=== PATIENT | male | born 1945 | race Caucasian/White ===

== ENCOUNTER 2016-10-07 19:23 | Inpatient (IN) ==
[2016-10-07] MEDS ORDERED: SODIUM CHLORIDE 0.9% 500 ML IV STA (19:59)
[2016-10-07] MEDS ORDERED: AMPICILLIN/SULBACTAM 3,000 MG in SODIUM CHLORIDE 0.9% 100 ML IV STA (20:01)
[2016-10-07] MEDS ORDERED: PANTOPRAZOLE 40 MG VIAL IV STA (20:01)
[2016-10-07] MEDS ORDERED: METOCLOPRAMIDE 10 MG/2 ML VIAL IV STA (20:01)
[2016-10-07] MEDS ORDERED: ONDANSETRON 4 MG/2 ML VIAL IV STA (20:01)
--- NOTE | 2016-10-07 20:05 | Emergency Department Note ---
Arrival - Arrival Chief Complaint: Altered Mental Status Stated Complaint: LETHARGIC/FEVER/SLEEING/UNABLE TO EAT ED Nursing Triage Note: PT DENIES HAVING ANY COMPLAINTS, DX WITH UTI 09/29/16, CHANGED FROM BACTIM TO CEPHALEXIN, PER FAMILY PT CONFUSED AND DISORIENTED WITH N /V, PT ABLE TO ANSWER MOST QUESTIONS APPROPRIATELY ACCU CHECK IN TRIAGE 176 MG/ DL Mode of Arrival: Ambulatory Limitations: No Limitations Source: Patient Time Seen by Provider: 10/07/16 19:59 - History of Present Illness HPI Narrative: This 71-year-old white male presents per the family with increasing confusion, poor intake, nausea, and dry heaves for the past 5 days. They alleged chills and fever although the patient has no fever at this time. Patient has been treated off and on for the last 10 days with both Bactrim and cephalexin for urinary tract infection, but the patient has not complained of any dysuria urgency or frequency with this situation although the patient is very minimally oriented to person and place but not time. At no time is had complaints of chest pain, shortness of breath, visual changes, slurred speech, or focal deficit. He has underlying problem of Parkinson's which has been progressing. Currently he appears in no acute medical distress. Onset (ago): day(s) (Patient presents 5 days post onset of symptoms) Allergies/Adverse Reactions: Allergies Allergy/AdvReac Type Severity Reaction Status Date / Time No Known Allergies Allergy Verified 10/07/16 19:42 Home Medications: Home Medications Medication Instructions Recorded Confirmed Type Aspirin [Ecotrin] 81 mg PO QAM 05/17/14 10/07/16 History Metoprolol Succinate 100 mg PO QAM 05/17/14 10/07/16 History Rasagiline [Azilect] 1 mg PO QAM 05/17/14 10/07/16 History Vitamin B Complex [B Complex] 1 each PO QPM 05/17/14 10/07/16 History hydroCHLOROthiazide 12.5 mg PO QAM 05/17/14 10/07/16 History [Hydrochlorothiazide] metFORMIN [Glucophage] 500 mg PO BID W/MEALS 05/17/14 10/07/16 History Benztropine Tab [Cogentin Tab] 2 mg PO TID 10/07/16 10/07/16 History Carbidopa/Levodopa/Entacapone 1 each PO ACHS 10/07/16 10/07/16 History [Stalevo 125 Tablet] Docusate Sodium 250 mg PO QAM 10/07/16 10/07/16 History Magnesium Oxide [Magnesium] 400 mg PO QPM 10/07/16 10/07/16 History Metoprolol Succinate 50 mg PO BEDTIME 10/07/16 10/07/16 History cephALEXin [Cephalexin] 500 mg PO TID 10/07/16 10/07/16 History Review of System - Review of System 12 point system: reviewed and no additional remarkable complaints except as stated - Review of System Constitutional: Present: as per HPI Respiratory: Present: as per HPI Cardiovascular: Present: as per HPI Gastrointestinal: Present: as per HPI Genitourinary male: Present: as per HPI Neurological: Present: as per HPI Medical,Surgical,& Family Hx - Social History Smoking Status: Never smoker Exam Physical Examination: GENERAL: Frail elderly white male in no acute distress. HEENT: Normocephalic. No trauma. Moist mucous membranes. EOMI. PERRLA. ENT NML NECK: Supple. No adenopathy. CARDIAC: Regular. No murmurs. Heart rate 70 CHEST: Clear to auscultation. No respiratory distress. O2 sat 98% ABDOMEN: Soft. Distended with bilateral lower quadrant firmness and tenderness. Hypoactive bowel sounds.. EXTREMITIES: No trauma. Normal ROM. No pedal edema. SKIN: No diaphoresis. No rash. NEURO: Alert. Oriented to person and place. Motor, sensory, vibratory intact. No focal deficits. Vital Signs: Vital Signs Temperature 97 F L 10/07/16 19:32 Pulse Rate 70 10/07/16 19:32 Respiratory Rate 22 10/07/16 19:32 Blood Pressure 133/66 10/07/16 19:32 O2 Sat by Pulse Oximetry 98 10/07/16 19:32 Course - Reevaluation(s) Reevaluation #1: Discussed with family the need for hospitalization given the multiple problems existing. - Consultations Consultation #1: Discussed with hospitalist service who will admit for further evaluation treatment. Results - Labs CBC & BMP: 10/07/16 19:59 10/07/16 19:59 Labs: I reviewed the lab and noted the diffuse abnormalities including leukocytosis and hyponatremia and serious changes in renal function. - Impressions EKG: Sinus rhythm with normal DE interval and significant intraventricular conduction delay. Diffuse nonspecific ST changes. No acute injury pattern noted. - Diagnostic Findings Procedure: Abdominal x-ray: image reviewed by me, report reviewed by me (Severe fecal stasis), Chest x-ray: image reviewed by me, report reviewed by me (No acute disease), CT: image reviewed by me, report reviewed by me (Head: Microvascular ischemia with cerebral atrophy. No acute injury pattern noted) Disposition Clinical Impression: Altered mental status, Recurrent urinary tract infection, Renal failure, Hyponatremia Case discussed with: patient's family Disposition: Still a Patient Condition: Guarded Time of Disposition: 21:35
[2016-10-07 20:32] LABS: Basophils % 0.2 % (0.0-0.8); Eosinophils # 0.2 10*3/uL (0.0-0.87); Eosinophils % 0.8 % (0.00-10.9); Hematocrit 34.2 VOL% (42.0-52.0); Hemoglobin 12.4 GM/DL (14.0-18.0); Immature Granulocytes % 3.4 %; Immature Granulocytes Absolute 0.73 #; Lymphocytes # 2.5 10*3/uL (1.4-4.0); Lymphocytes % 11.7 % (21.2-54.2); Mean Corpuscular HGB Conc 36.3 GM/DL (32-36); Mean Corpuscular Hemoglobin 31 PG (27-34); Mean Corpuscular Volume 86.6 FL (87-102); Mean Platelet Volume 10.8 FL (9.6-12.0); Monocytes # 2.5 10*3/uL (0.11-0.8); Monocytes % 11.7 % (1.7-12.7); Neutrophils # 15.6 10*3/uL (1.4-7.4); Neutrophils % 72.2 % (38.7-73.9); Platelet Count 114 T/CUMM (130-400); Red Blood Count 3.95 MC/CUMM (3.8-5.5); Red Cell Distribution Width 13.4 % (9.3-17.3); White Blood Count 21.6 T/CUMM (4-12)
[2016-10-07] MEDS ORDERED: METOCLOPRAMIDE 10 MG/2 ML VIAL ONE (20:38)
[2016-10-07] MEDS ORDERED: ONDANSETRON 4 MG/2 ML VIAL ONE (20:38)
[2016-10-07] MEDS ORDERED: PANTOPRAZOLE 40 MG VIAL IV ONE (20:38)
[2016-10-07 20:48] LABS: Ammonia 29 UMOL/L (11-32)
[2016-10-07 20:50] LABS: INR 1.1; PT Patient Result 12.2 SECS
[2016-10-07 20:52] LABS: Alanine Aminotransferase < 6 U/L (16-61); Albumin 2.8 G/DL (3.4-5.0); Alkaline Phosphatase 92 U/L (45-117); Amylase 38 U/L (25-115); Aspartate Amino Transferase 12 U/L (0-37); Blood Urea Nitrogen 181 MG/DL (7-18); Calcium 8.2 MG/DL (8.5-10.1); Glucose 160 MG/DL (74-106); Osmolality,Calculated 313.5 MOS/KG (273-304); Potassium 4.6 MMOL/L (3.5-5.1); Sodium 125 MMOL/L (136-145); Total Protein 6.3 G/DL (6.4-8.3)
[2016-10-07 20:58] LABS: Lymphocytes 17 % (20-55); Segmented Neutrophils 78 % (50-85); Total Cells Counted 100
[2016-10-07 20:59] LABS: Burr Cells Few; Platelet Estimate Decreased; Poikilocytosis 1+; Tear Drop Cells Slight
--- NOTE | 2016-10-07 21:03 | CT Report ---
CT head/brain wo con Indication: Mental status changes. CT BRAIN WITHOUT CONTRAST DLP: 1135 mGy*cm. One or more of the following dose reduction techniques was used: Automated exposure control, adjustment of the mA and/or kV according the patient size, or use of iterative reconstruction techniques. Comparison: None. Date of admission: 10/07/2016. Technique: Axial noncontrast CT images of the brain were obtained. Findings: No acute hemorrhage, mass or mass effect. Generalized atrophy noted. Patchy periventricular white matter hypodensity is present. Cortical yuong-white junction and basal ganglia structures are well-defined. Volume loss in the posterior fossa noted as well. Mucosal thickening of the ethmoid air cells are present. Remainder paranasal sinuses are clear. Impression: Generalized atrophy and chronic small vessel ischemic change. Ethmoid sinus disease. PROCEDURE INTERPRETED AT [facility] DEPARTMENT OF RADIOLOGY Final Report Signed by: Olivier Schmitz M.D.
--- NOTE | 2016-10-07 21:04 | XRay Report ---
XR chest 1V portable Indication: Altered mental status. Chest one view: Comparison 05/16/2014. The heart size and mediastinal contour are normal. The lungs and pleural spaces are clear. Bones are unremarkable. Impression: Negative chest. PROCEDURE INTERPRETED AT [facility] DEPARTMENT OF RADIOLOGY Final Report Signed by: Olivier Schmitz M.D.
--- NOTE | 2016-10-07 21:06 | XRay Report ---
XR abdomen 2V Indication: Pain. Abdomen 3 views: No small bowel dilatation. Increased stool and gas projects over the colon, without dilatation. No evidence of free air. No abnormal calcifications or masses. There is an unusual appearance to the soft tissues around the left hip, somewhat bubbly. This may be artifact outside the patient but correlation with physical exam necessary to exclude cellulitis, including necrotizing fasciitis. Impression: Mild constipation without obstruction. Recommend examination of the soft tissues around the left hip. There is a bubbly appearance to the region which is either artifact or soft tissue emphysema. PROCEDURE INTERPRETED AT [facility] DEPARTMENT OF RADIOLOGY Final Report Signed by: Olivier Schmitz M.D.
[2016-10-07] MEDS ORDERED: AMPICILLIN/SULBACTAM 3,000 MG VIAL ONE (21:22)
[2016-10-07] MEDS ORDERED: SODIUM CHLORIDE 0.9% 100 ML IV ONE (21:23)
[2016-10-07] MEDS ORDERED: ONDANSETRON 4 MG/2 ML VIAL IV PRN (23:18)
[2016-10-07] MEDS ORDERED: ACETAMINOPHEN 325 MG TABLET PO PRN (23:18)
[2016-10-07] MEDS ORDERED: DOCUSATE SODIUM 100 MG CAPSULE PO PRN (23:18)
[2016-10-08 00:14] LABS: Apearance,Urine Slightly Hazy (Clear); Bacteria,Urine Many /HPF (Few); Bilirubin,Urine Negative (Negative); Blood, Urine Moderate mg/dL (Negative); Glucose,Urine (UA) Negative (Negative); Ketones,Urine Negative (Negative); Nitrite,Urine Positive (Negative); Protein,Urine Negative; RBC,Urine 10 /HPF (0-4); Urine Color Yellow (Yellow); Urine Specific Gravity 1.009 (1.001-1.035); Urine Urobilinogen < 2.0 EU/DL (0.2-1.0); WBC,Urine 40 /HPF (0-6)
[2016-10-08] MEDS: SODIUM CHLORIDE 0.9% 1,000 ML IV SCH ×3 (01:08→15:57)
--- NOTE | 2016-10-08 02:24 | Hospitalist History & Physical ---
Assessment and Plan - Time spent with patient Time spent with patient: Greater than 30 minutes (1) Acute renal failure Status: Acute Assessment and plan: Admit to hospitalist services. Consult nephrology. IV NS at 125 ml/hr. Insert varela catheter. Strict I/Os. CT abdomen pelvis w/o contrast. Renal US in AM. Repeat BMP in AM. Current Visit: Yes (2) Urinary tract infection Status: Acute Assessment and plan: Nephrology consulted. Zosyn 2.25 mg IV Q8 hours. IV NS 125 ml/hr. CT abdomen/pelvis w/o contrast. Renal US in AM. Current Visit: Yes (3) Parkinson disease Status: Chronic Assessment and plan: Continue home medications. Current Visit: Yes (4) HTN (hypertension) Status: Chronic Assessment and plan: Hold HCTZ. Continue metoprolol 100 mg QAM and 50 mg QHS. Continue to monitor. Current Visit: Yes (5) Diabetes mellitus Status: Chronic Assessment and plan: Clear liquid diet for now due to several days of anorexia, nausea, and vomiting. Accuchecks ACHS. Insulin per SS. Hold metformin for now. Repeat BMP in AM. Current Visit: Yes (6) DVT prophylaxis Status: Acute Assessment and plan: SCDs due to mild thrombocytopenia. Current Visit: Yes History of Present Illness Chief complaint: AMS History of present illness: Mr. Galvan is a 71 year old male with a history of Parkinson's Disease, NIDDM, and HTN [facility] of weakness, abnormal gait, abnormal speech, disorientation and forgetfulness x 2 weeks, as well as more recent onset of decreased appetite, nausea, vomiting, fever, chills, bloating and low back pain with symptoms worsening over the last few days. He reports being treated over the last week by Dr. Pierre in [place] for UTI. In the ED, Mr. Galvan was found to have a WBC count of 21.[address] of the head was negative for any acute changes. Significantly, his creatinine was noted to be 14.1. Currently, he is lethargic with mildly slurred speech, but responds appropriately to questions and is oriented x 3. Hospitalist services were consulted for further evaluation and management, and the patient will be admitted to a monitored bed. Home Medications Medication Instructions Recorded Confirmed Type Aspirin [Ecotrin] 81 mg PO QAM 05/17/14 10/07/16 History Metoprolol Succinate 100 mg PO QAM 05/17/14 10/07/16 History Rasagiline [Azilect] 1 mg PO QAM 05/17/14 10/07/16 History Vitamin B Complex [B Complex] 1 each PO QPM 05/17/14 10/07/16 History hydroCHLOROthiazide 12.5 mg PO QAM 05/17/14 10/07/16 History [Hydrochlorothiazide] metFORMIN [Glucophage] 500 mg PO BID W/MEALS 05/17/14 10/07/16 History Benztropine Tab [Cogentin Tab] 2 mg PO TID 10/07/16 10/07/16 History Carbidopa/Levodopa/Entacapone 1 each PO ACHS 10/07/16 10/07/16 History [Stalevo 125 Tablet] Docusate Sodium 250 mg PO QAM 10/07/16 10/07/16 History Magnesium Oxide [Magnesium] 400 mg PO QPM 10/07/16 10/07/16 History Metoprolol Succinate 50 mg PO BEDTIME 10/07/16 10/07/16 History cephALEXin [Cephalexin] 500 mg PO TID 10/07/16 10/07/16 History Allergies Allergy/AdvReac Type Severity Reaction Status Date / Time No Known Allergies Allergy Verified 10/07/16 19:42 Medical,Surgical,& Family Hx - Medical History Cardio: History of: Hypertension Neurology: History of: Parkinson's Disease HEENT: History of: HEENT Problems (nasal surgery(?) 2-3yrs ago) Endocrine: History of: Diabetes Mellitus (NIDDM) Respiratory: No history of: Asthma, COPD Renal: No history of: Renal Failure, Renal Problems Genitourinary: No history of: Problems Gastrointestinal: No history of: GI Problems Musculoskeletal: No history of: Amputation, Back/Neck Problems Hematology: No history of: Bleeding Problems, Clotting Problems - Surgical History Cardiac Surgeries: Patient Denies: Cardiac Catheterization Neurologic Surgeries: Patient denies: Neurologic Surgery Abdominal Surgeries: Patient denies: Abdominal Surgery Reproductive Surgeries: Patient denies;: Genitourinary Surgery - Family History Family History: Reports;: Family Cancer, Family Diabetes - Social History Smoking Status: Never smoker (uses smokeless tobacco) Have you smoked in the last 12 months: No Frequency of Alcohol Use: Occasionally Type of Drug Use: None Marital Status: Lives With:: Spouse Functional capacity: independent ambulation 12 point system: reviewed and no additional remarkable complaints except as stated - Constitutional Constitutional: Present: anorexia, chills, fever(s), weakness - EENT Eyes: Absent: blurry vision, diplopia, loss of vision Ears: Absent: decreased hearing, ear discharge, ear pain Nose, mouth and throat: Absent: dysphagia, epistaxis, nasal congestion, sore throat - Cardiovascular Cardiovascular: Absent: chest pain at rest, chest pain with activity, dyspnea, edema, orthopnea, palpitations - Respiratory Respiratory: Absent: cough, dyspnea - Gastrointestinal Gastrointestinal: Present: abdominal pain, bloating, nausea, vomiting. Absent: dysphagia, hematemesis, hematochezia, melena - Genitourinary Genitourinary: Present: urinary frequency. Absent: hematuria - Musculoskeletal Musculoskeletal: Present: back pain, muscle weakness. Absent: joint swelling, myalgias - Neurological Neurological: Present: abnormal gait, abnormal speech, behavioral changes, confusion, disequilibrium, tremor(s). Absent: numbness, paresthesias - Psychiatric Psychiatric: Absent: anxiety, depression - Endocrine Endocrine: Present: polyuria - Hematologic/Lymphatic Hematologic/Lymphatic: Absent: easy bleeding, easy bruising Exam - Constitutional Vitals: Period Temp Pulse Resp BP Sys/Logan Pulse Ox Last 24 Hr 97 F-97.6 F 70-80 20-22 133-149/61-66 93-98 Exam: Constitutional System: Lethargic. Answers questions appropriately. Oriented x 3. No distress. Mild RUE tremulousness noted. Head: Normocephalic, atraumatic. Ears, Nose and Throat System: No pain or tenderness. No epistaxis or discharge Eyes System: Pupils equal, round, and reactive. Extraocular muscles intact. Neck: Supple, without adenopathy, No jugular venous distention. No thyromegaly, neck mass, or prior surgery apparent. Respiratory System: Chest clear to auscultation. Cardiovascular System: Heart with regular rate and rhythm. No murmur. GI System: Abdomen distended and firm below umbilicus. Mild, diffuse tenderness noted with palpation. Normo active bowel sounds present. Musculoskeletal System: BUEs and RLE with no pedal edema. Left foot/ankle edema noted. Full distal pulses. Normal capillary refill. Neurological System: Mild tremor of RUE noted. Speech is somewhat slurred and difficult to understand. Psychiatric System: Conversation is rational. Results - Labs CBC & BMP: 10/07/16 19:59 10/07/16 19:59 Lab Results: I have reviewed the past 24 hour labs
[2016-10-08] MEDS ORDERED: GLUCAGON 1 MG VIAL IM PRN (02:46)
[2016-10-08] MEDS ORDERED: DEXTROSE 50% 25 GM/50 ML SYRINGE IV PRN (02:46)
--- NOTE | 2016-10-08 02:51 | EKG Report ---
Stationary ECG Study [facility] ER Test Date: 10/07/2016 8:44:53 PM Pat Name: HERI COTA Department: Room: 520 Gender: M Solutions Architect Consultant: : 1945 Requested by: Howard Flores Order Number: [id number] Lora MD: SAM FLOWERS Intervals [place] Rate: 69 P: 34 CT: 192 QRS: 97 QRSD: 170 T: 45 QT: 470 QTc: 489 Interpretive Statements SINUS RHYTHM LEFT BUNDLE BRANCH BLOCK Electronically Signed On 10-08-16 07:13:21 CDT by SAM FLOWERS [email or web address]
[2016-10-08 05:53] LABS: Basophils % 0.2 % (0.0-0.8); Eosinophils # 0.1 10*3/uL (0.0-0.87); Eosinophils % 0.9 % (0.00-10.9); Hematocrit 34.7 VOL% (42.0-52.0); Hemoglobin 12.3 GM/DL (14.0-18.0); Immature Granulocytes Absolute 0.43 #; Lymphocytes # 1.5 10*3/uL (1.4-4.0); Lymphocytes % 10.4 % (21.2-54.2); Mean Corpuscular HGB Conc 35.4 GM/DL (32-36); Mean Corpuscular Hemoglobin 31 PG (27-34); Mean Corpuscular Volume 87.2 FL (87-102); Mean Platelet Volume 10.5 FL (9.6-12.0); Monocytes # 1.5 10*3/uL (0.11-0.8); Monocytes % 10.4 % (1.7-12.7); Neutrophils # 10.9 10*3/uL (1.4-7.4); Neutrophils % 75.1 % (38.7-73.9); Platelet Count 130 T/CUMM (130-400); Red Blood Count 3.98 MC/CUMM (3.8-5.5); Red Cell Distribution Width 13.3 % (9.3-17.3); White Blood Count 14.5 T/CUMM (4-12)
[2016-10-08 06:25] LABS: Calcium 8.8 MG/DL (8.5-10.1); Potassium 4.4 MMOL/L (3.5-5.1)
[2016-10-08 06:31] LABS: Band Neutrophils 1 % (0-10); Burr Cells Slight; Giant Platelets Few; Hypochromasia 1+; Lymphocytes 8 % (20-55); Platelet Estimate Normal; Segmented Neutrophils 84 % (50-85); Total Cells Counted 100
--- NOTE | 2016-10-08 06:36 | CT Report ---
CT of the abdomen and pelvis without intravenous or oral contrast. Indication: Generalized abdominal pain. Abdominal bloating. Abnormal lab values. Axial images were obtained with sagittal and coronal reconstructions. There is significant limitation secondary to patient motion. The heart is enlarged. There is coronary artery calcification. There is scarring and atelectasis present within the lung bases. No pericardial or pleural effusion. The liver size and density is normal. The gallbladder is somewhat distended. The spleen is normal in size. There is no pancreatic enlargement. There is no adrenal enlargement. The kidneys are normal in size, location, and contour, without nephrolithiasis. The ureters are mildly and uniformly dilated to the level of the urinary bladder. There is a Franks catheter in place, but still considerable urine within the urinary bladder. The prostate gland is enlarged, having dimensions of 6 cm. The course of the Franks catheter through the prostatic urethra is tortuous. There is generalized subcutaneous edema, mild in severity. There is no free air seen within the peritoneal cavity. There is mild free fluid along both paracolic gutters. The abdominal aorta is of normal caliber, with scattered plaque. The loops of small intestine are not significantly dilated. There is moderate fecal material throughout the length of the colon. The appendix is not discretely seen. There is mild circumferential wall thickening seen involving the rectum. Degenerative changes are noted within the spinal column. Impression: 1. Study is limited by motion artifact. 2. Mild distention of the gallbladder, nonspecific. 3. Mild hydronephrosis bilaterally, with a distended urinary bladder despite the presence of a Franks catheter. Enlarged prostate gland. These findings could be related to bladder outlet obstruction. No urinary tract calculi are noted. Infection of the kidneys cannot be excluded. 4. Minimal free fluid within the peritoneal cavity. 5. Generalized anasarca. 6. Mild circumferential wall thickening of the rectum, nonspecific. Infection and neoplasm should be considered. Rectal exam plus or minus colonoscopy recommended. The CT exam was performed using one or more of the following dose reduction techniques: Automated exposure control, adjustment of the mA and/or kV according to patient size, or use of iterative reconstruction technique. PROCEDURE INTERPRETED AT [facility] DEPARTMENT OF RADIOLOGY Final Report Signed by: Dr. Alona Wells
[2016-10-08] MEDS: PIPERACILLIN/TAZOBACTAM 3,375 MG in SODIUM CHLORIDE 0.9% 100 ML IV SCH ×2 (06:43→16:24)
--- NOTE | 2016-10-08 08:28 | Ultrasound Report ---
Bilateral renal ultrasound. Indication: Markedly elevated creatinine. No prior studies. The kidneys are normal in size. The right measures 9.7 x 5.0 x 5.1 cm in the left measures 10.4 x 5.8 x 5.6 cm. Cortical thickness is within the range of normal. Parenchymal echogenicity is normal. Arterial flow is documented bilaterally. There is mild bilateral hydronephrosis. Impression: Mild bilateral hydronephrosis. The Ultrasound images were captured and stored. PROCEDURE INTERPRETED AT [facility] DEPARTMENT OF RADIOLOGY Final Report Signed by: Dr. Alona Wells
[2016-10-08] MEDS: INSULIN LISPRO 100 UNIT/ML SUBCUT SCH ×4 (08:48→20:58)
[2016-10-08] MEDS: METOPROLOL SUCCINATE XL 100 MG TABLET PO SCH (08:49)
[2016-10-08] MEDS: ASPIRIN EC 81 MG TABLET PO SCH (08:49)
[2016-10-08] MEDS: RASAGILINE 0.5 MG TABLET PO SCH (08:50)
[2016-10-08] MEDS ORDERED: BENZTROPINE 1 MG TABLET PO SCH (09:00)
[2016-10-08] MEDS ORDERED: ENOXAPARIN 30 MG/0.3 ML SYRINGE SUBCUT SCH (09:00)
--- NOTE | 2016-10-08 10:43 | Urology Consultation ---
Assessment and Plan (1) Acute urinary retention Status: Acute Assessment and plan: Greater than 2 L in his bladder at time of Franks placement. This is likely worsened by Parkinson's disease, medications, and possible constipation. Maintain Franks catheter to gravity. Current Visit: Yes (2) Enlarged prostate with urinary retention Status: Acute Assessment and plan: 40 g prostate with significant urinary retention. After renal function improved, would start Flomax 0.4 mg nightly and finasteride 5 mg daily. Current Visit: Yes (3) Parkinson disease Status: Chronic Assessment and plan: Likely contributing to urinary retention. His bladder may be poorly function with neuropathy. Or, this could be related just with medications. Current Visit: Yes (4) Hydronephrosis due to obstruction of bladder Status: Acute Assessment and plan: Maintain Franks catheter to gravity. Creatinine is falling quickly with postobstructive diuresis. Hydronephrosis should resolve with gravity drainage. Current Visit: Yes (5) Acute renal failure Status: Acute Assessment and plan: Likely due to urinary retention. Creatinine falling from 14 down to 9 overnight. We will continue to monitor urine output, and need hydration due to risk of electrolyte abnormalities. This is likely related with postobstructive diuresis. We will continue to follow at this time. No acute surgical intervention. Maintain Franks catheter to gravity. Start Flomax 0.4 mg nightly and finasteride 5 mg daily when electrolytes normalized. Thanks for the opportunity to participate in the care of this patient. Current Visit: Yes History of Present Illness - Data of Consult Patient: new to practice Consult date: 10/08/16 - Consult Narrative History of present illness: Mr. Galvan is a 71 year old male who was admitted with altered mental status, severe hyponatremia, and urinary retention. His serum creatinine was 14. He had been treated for reported urinary tract infections with cephalexin and Bactrim in the recent days. He had progressive weakening, confusion, and generalized fatigue. Upon evaluation he had a CT abdomen and pelvis without contrast that demonstrated severe bilateral hydronephrosis with hydroureter down to the bladder. His bladder was massively distended. A Franks catheter was placed with immediate drainage of over 2 L of clear urine. He has had over 6 L of urine output since Franks placement last evening. Urology was consulted for urinary retention. His history is obtained mostly from the chart. He is somewhat confused and slow to speak. History is somewhat confusing to obtain from him today. CC: Donna Peguero MD Acute urinary retention with bilateral hydronephrosis - Home Medications and Allergies Home Medications: Home Medications Medication Instructions Recorded Confirmed Type Aspirin [Ecotrin] 81 mg PO QAM 05/17/14 10/07/16 History Metoprolol Succinate 100 mg PO QAM 05/17/14 10/07/16 History Rasagiline [Azilect] 1 mg PO QAM 05/17/14 10/07/16 History Vitamin B Complex [B Complex] 1 each PO QPM 05/17/14 10/07/16 History hydroCHLOROthiazide 12.5 mg PO QAM 05/17/14 10/07/16 History [Hydrochlorothiazide] metFORMIN [Glucophage] 500 mg PO BID W/MEALS 05/17/14 10/07/16 History Benztropine Tab [Cogentin Tab] 2 mg PO TID 10/07/16 10/07/16 History Carbidopa/Levodopa/Entacapone 1 each PO ACHS 10/07/16 10/07/16 History [Stalevo 125 Tablet] Docusate Sodium 250 mg PO QAM 10/07/16 10/07/16 History Magnesium Oxide [Magnesium] 400 mg PO QPM 10/07/16 10/07/16 History Metoprolol Succinate 50 mg PO BEDTIME 10/07/16 10/07/16 History cephALEXin [Cephalexin] 500 mg PO TID 10/07/16 10/07/16 History Allergies/Adverse Reactions: Allergies Allergy/AdvReac Type Severity Reaction Status Date / Time No Known Allergies Allergy Verified 10/07/16 19:42 ROS unobtainable: due to delirium (Asking obtained, but unsure reliability) - Constitutional Constitutional: Present: anorexia, fatigue, frequent falls, lethargy - Respiratory Respiratory: Absent: cough, dyspnea - Gastrointestinal Gastrointestinal: Present: abdominal pain, bloating - Genitourinary Genitourinary: Present: difficulty urinating. Absent: hematuria - Neurological Neurological: Present: abnormal speech, frequent falls, memory loss, other ( History of Parkinson's) - Endocrine Endocrine: Present: fatigue. Absent: cold intolerance - Hematologic/Lymphatic Hematologic/Lymphatic: Absent: easy bleeding, easy bruising Exam - Constitutional Vitals: Period Temp Pulse Resp BP Sys/Logan Pulse Ox Last 24 Hr 97 F-98.4 F 70-93 18-22 105-149/49-70 92-99 General appearance: other (Drowsy, difficult to awaken) - Head Head exam: Present: normocephalic, atraumatic - Eye Eye exam: Absent: scleral icterus - ENT ENT exam: Present: normal oropharynx - Neck Neck exam: Present: normal inspection - Respiratory Respiratory exam: Present: clear to auscultation bilaterally. Absent: accessory muscle use, stridor - Cardiovascular Cardiovascular exam: Present: regular rate and rhythm - GI/Abdominal GI/Abdominal exam: Present: normal bowel sounds, soft. Absent: rebound - Genitourinary Genitourinary: penis with no lesions or discharge (Circumcised; 16 Serbian Franks with clear urine-secured to right thigh), other (40 g prostate, symmetric, a nodular, soft) - Extremities Exam Extremities exam: Absent: edema - Back Exam Back exam: Absent: CVA tenderness (L), CVA tenderness (R) - Neurological Exam Neurological exam: Present: altered - Psychiatric Psychiatric exam: Present: flat affect - Skin Skin exam: Present: warm, dry Results - Labs CBC & BMP: 10/08/16 05:15 10/08/16 05:15 Lab Results: I have reviewed the past 24 hour labs - Diagnostic Findings Procedure: CT Abdomen and Pelvis: image reviewed by me, report reviewed by me ( I personally reviewed his CT abdomen and pelvis. No evidence of urolithiasis. Marked bilateral hydronephrosis with hydroureter down to the bladder. Markedly distended bladder to approximately the umbilicus. Evidence of intravesical median lobe.) Medical,Surgical,& Family Hx - Medical History Cardio: History of: Hypertension Neurology: History of: Parkinson's Disease HEENT: History of: HEENT Problems (nasal surgery(?) 2-3yrs ago) Endocrine: History of: Diabetes Mellitus (NIDDM) Respiratory: No history of: Asthma, COPD Renal: No history of: Renal Failure, Renal Problems Genitourinary: History of: Problems (Inability to void for several days. Acute urinary retention) Gastrointestinal: No history of: GI Problems Musculoskeletal: No history of: Amputation, Back/Neck Problems Hematology: No history of: Bleeding Problems, Clotting Problems - Surgical History Cardiac Surgeries: Patient Denies: Cardiac Catheterization Neurologic Surgeries: Patient denies: Neurologic Surgery Abdominal Surgeries: Patient denies: Abdominal Surgery Reproductive Surgeries: Patient denies;: Genitourinary Surgery - Family History Family History: Reports;: Family Cancer, Family Diabetes - Social History Smoking Status: Never smoker (uses smokeless tobacco) Frequency of Alcohol Use: Occasionally Type of Drug Use: None Lives With:: Patient reports he lives at home with his . Unsure how reliable his history is
--- NOTE | 2016-10-08 14:58 | Neurology Consult Note ---
History of Present Illness History of present illness: Mr. Galvan is a 71 year old right-handed white gentleman with a history of Parkinson's Disease, NIDDM, and HTN who presented to the ED last night with complaints of weakness, abnormal gait, abnormal speech, disorientation and forgetfulness x 2 weeks, as well as more recent onset of decreased appetite, nausea, vomiting, fever, chills, bloating and low back pain with symptoms worsening over the last few days. He reports being treated over the last week by Dr. Pierre in [place] for UTI. In the ED, Mr. Galvan was found to have a WBC count of 21.[address] of the head was negative for any acute changes. Significantly, his creatinine was noted to be 14.1 and is down to 9.8 now. Currently, he is lethargic but responds appropriately to questions . Home Medications Medication Instructions Recorded Confirmed Type Aspirin [Ecotrin] 81 mg PO QAM 05/17/14 10/07/16 History Metoprolol Succinate 100 mg PO QAM 05/17/14 10/07/16 History Rasagiline [Azilect] 1 mg PO QAM 05/17/14 10/07/16 History Vitamin B Complex [B Complex] 1 each PO QPM 05/17/14 10/07/16 History hydroCHLOROthiazide 12.5 mg PO QAM 05/17/14 10/07/16 History [Hydrochlorothiazide] metFORMIN [Glucophage] 500 mg PO BID W/MEALS 05/17/14 10/07/16 History Benztropine Tab [Cogentin Tab] 2 mg PO TID 10/07/16 10/07/16 History Carbidopa/Levodopa/Entacapone 1 each PO ACHS 10/07/16 10/07/16 History [Stalevo 125 Tablet] Docusate Sodium 250 mg PO QAM 10/07/16 10/07/16 History Magnesium Oxide [Magnesium] 400 mg PO QPM 10/07/16 10/07/16 History Metoprolol Succinate 50 mg PO BEDTIME 10/07/16 10/07/16 History cephALEXin [Cephalexin] 500 mg PO TID 10/07/16 10/07/16 History Allergies Allergy/AdvReac Type Severity Reaction Status Date / Time No Known Allergies Allergy Verified 10/07/16 19:42 ROS unobtainable: due to mental status Medical,Surgical,& Family Hx - Medical History Cardio: History of: Hypertension Neurology: History of: Parkinson's Disease HEENT: History of: HEENT Problems (nasal surgery(?) 2-3yrs ago) Endocrine: History of: Diabetes Mellitus (NIDDM) Respiratory: No history of: Asthma, COPD Renal: No history of: Renal Failure, Renal Problems Genitourinary: History of: Problems (Inability to void for several days. Acute urinary retention) Gastrointestinal: No history of: GI Problems Musculoskeletal: No history of: Amputation, Back/Neck Problems Hematology: No history of: Bleeding Problems, Clotting Problems - Surgical History Cardiac Surgeries: Patient Denies: Cardiac Catheterization Neurologic Surgeries: Patient denies: Neurologic Surgery Abdominal Surgeries: Patient denies: Abdominal Surgery Reproductive Surgeries: Patient denies;: Genitourinary Surgery - Family History Family History: Reports;: Family Cancer, Family Diabetes - Social History Smoking Status: Never smoker (uses smokeless tobacco) Frequency of Alcohol Use: Occasionally Type of Drug Use: None Exam - Constitutional Vitals: Period Temp Pulse Resp BP Sys/Logan Pulse Ox Last 24 Hr 97 F-98.4 F 70-93 18-22 105-149/49-70 92-99 Exam: GENERAL: Patient is in no acute distress. NECK: Neck is supple. There is no JVD. No carotid bruits present. No thyroid masses. CVS: First and second heart sounds are normal. There is no S3 present. Regular rate and rhythm. RESPIRATORY: Lungs are clear to auscultation without any rales or rhonchi. ABDOMEN: Soft and non-tender. Bowel sounds are present. There is no hepatosplenomegaly. EXT: There is no palpable edema. Peripheral pulses are present. Skin: No rashes Central Nervous system: General: Alert, awake and Oriented x 3 Speech: Fluent Comprehension: Intact and normal Facial expressions: Normal Cranial Nerves: CN1/Olfactory: Normal CN II/ Optic: Normal, Visual Pedraza unreliable CN III, and : CYRUS & EOMI CN V: Normal & intact CN VII: face is symmetric CNVIII: Normal CN XI/X/XI/XII: Grossly intact and Normal Motor: Bilateral mild cogwheel rigidity and bradykinesia Manual strength testing cannot be done at this Sensory: Grossly intact for all the modalities of PP, LT and temp sense Reflexes: 1+ and symmetrical Cerebellar function: No chest Toes: Equivocal Gait: Not tested Results - Labs CBC & BMP: 10/08/16 05:15 10/08/16 05:15 Assessment and Plan (1) Toxic metabolic encephalopathy Status: Acute Assessment and plan: Likely secondary to infection and renal failure/acute kidney injury Nephrology consultation is pending Current Visit: Yes (2) Parkinson disease Status: Chronic Assessment and plan: Continue current Parkinson's medication at the same dose. However will discontinue Cogentin at this time Thank you for the consult Current Visit: Yes
--- NOTE | 2016-10-08 17:47 | Nephrology Consult Note ---
History of Present Illness Chief complaint: Acute renal failure History of present illness: Mr. Galvan is a 71 year old male with history of diabetes, Parkinson's disease presented to a local emergency room with a 2 week history of weakness and change in mentation. The patient was found to have an elevated serum creatinine of 14 and evidence of hydronephrosis. He now has a Franks placed now and has been voiding without event today. Serum creatinine is now down to 9.1. Nephrology is been consulted for renal issues. Renal ultrasound shows normal kidney size and the cortex showed normal thickness. No fevers or chills. There is been no exposure to contrast or intake medications. Home Medications Medication Instructions Recorded Confirmed Type Aspirin [Ecotrin] 81 mg PO QAM 05/17/14 10/07/16 History Metoprolol Succinate 100 mg PO QAM 05/17/14 10/07/16 History Rasagiline [Azilect] 1 mg PO QAM 05/17/14 10/07/16 History Vitamin B Complex [B Complex] 1 each PO QPM 05/17/14 10/07/16 History hydroCHLOROthiazide 12.5 mg PO QAM 05/17/14 10/07/16 History [Hydrochlorothiazide] metFORMIN [Glucophage] 500 mg PO BID W/MEALS 05/17/14 10/07/16 History Benztropine Tab [Cogentin Tab] 2 mg PO TID 10/07/16 10/07/16 History Carbidopa/Levodopa/Entacapone 1 each PO ACHS 10/07/16 10/07/16 History [Stalevo 125 Tablet] Docusate Sodium 250 mg PO QAM 10/07/16 10/07/16 History Magnesium Oxide [Magnesium] 400 mg PO QPM 10/07/16 10/07/16 History Metoprolol Succinate 50 mg PO BEDTIME 10/07/16 10/07/16 History cephALEXin [Cephalexin] 500 mg PO TID 10/07/16 10/07/16 History Allergies Allergy/AdvReac Type Severity Reaction Status Date / Time No Known Allergies Allergy Verified 10/07/16 19:42 Medical,Surgical,& Family Hx - Medical History Cardio: History of: Hypertension Neurology: History of: Parkinson's Disease HEENT: History of: HEENT Problems (nasal surgery(?) 2-3yrs ago) Endocrine: History of: Diabetes Mellitus (NIDDM) Respiratory: No history of: Asthma, COPD Renal: No history of: Renal Failure, Renal Problems Genitourinary: History of: Problems (Inability to void for several days. Acute urinary retention) Gastrointestinal: No history of: GI Problems Musculoskeletal: No history of: Amputation, Back/Neck Problems Hematology: No history of: Bleeding Problems, Clotting Problems - Surgical History Cardiac Surgeries: Patient Denies: Cardiac Catheterization Neurologic Surgeries: Patient denies: Neurologic Surgery Abdominal Surgeries: Patient denies: Abdominal Surgery Reproductive Surgeries: Patient denies;: Genitourinary Surgery - Family History Family History: Reports;: Family Cancer, Family Diabetes - Social History Smoking Status: Never smoker (uses smokeless tobacco) Frequency of Alcohol Use: Occasionally Type of Drug Use: None Review of Systems ROS unobtainable: due to mental status Exam - Vital Signs Vital signs: Period Temp Pulse Resp BP Sys/Logan Pulse Ox Last 24 Hr 97 F-98.4 F 70-93 18-22 105-149/49-70 92-99 - General Appearance General appearance: well-developed, well-nourished EENT: ATNC Neck: supple Respiratory: clear Cardiology: regular rate, regular rhythm Gastrointestinal: normoactive bowel sounds, no tenderness Neurologic: no asterixis Musculoskeletal: no clubbing Results - Labs CBC & BMP: 10/08/16 05:15 10/08/16 05:15 Assessment and Plan (1) Acute renal failure Status: Acute Assessment and plan: More likely due to obstruction. Now with a Franks in place and is voiding. Avoid nephrotoxic agents. BMP in a.m. Current Visit: Yes (2) Parkinson disease Status: Chronic Current Visit: Yes (3) HTN (hypertension) Status: Chronic Current Visit: Yes Qualifiers: Hypertension type: essential hypertension Qualified Code(s): I10 - Essential (primary) hypertension (4) Urinary tract infection Status: Acute Current Visit: Yes (5) Retention of urine, unspecified Status: Acute Assessment and plan: Now Franks catheter in place. Current Visit: Yes
[2016-10-08] MEDS: MAGNESIUM OXIDE 400 MG TABLET PO SCH (20:57)
[2016-10-08] MEDS: METOPROLOL SUCCINATE XL 50 MG TABLET PO SCH (20:57)
[2016-10-08] MEDS: MULTIVITAMIN (BEROCCA) TABLET PO SCH (20:58)
[2016-10-09] MEDS: SODIUM CHLORIDE 0.9% 1,000 ML IV SCH ×3 (00:09→17:28)
[2016-10-09] MEDS: PIPERACILLIN/TAZOBACTAM 3,375 MG in SODIUM CHLORIDE 0.9% 100 ML IV SCH ×2 (03:33→15:17)
[2016-10-09 07:52] LABS: Calcium 8.2 MG/DL (8.5-10.1); Osmolality,Calculated 305.3 MOS/KG (273-304); Potassium 3.3 MMOL/L (3.5-5.1)
--- NOTE | 2016-10-09 07:55 | Urology Progress Note ---
Assessment and Plan (1) Acute urinary retention Status: Acute Assessment and plan: Greater than 2 L in his bladder at time of Franks placement. Needs to obtain urine culture. This is likely worsened by Parkinson's disease, medications, and possible constipation. Maintain Franks catheter to gravity. Current Visit: Yes (2) Enlarged prostate with urinary retention Status: Acute Assessment and plan: 40 g prostate with significant urinary retention. After renal function improved, would start Flomax 0.4 mg nightly and finasteride 5 mg daily. Discussed with the patient that he may need intermittent catheterization in the future. Current Visit: Yes (3) Parkinson disease Status: Chronic Assessment and plan: Likely contributing to urinary retention. His bladder may be poorly function with neuropathy. Or, this could be related just with medications. Current Visit: Yes (4) Hydronephrosis due to obstruction of bladder Status: Acute Assessment and plan: Maintain Franks catheter to gravity. Creatinine is falling quickly with postobstructive diuresis. Nephrology following. Hydronephrosis should resolve with gravity drainage. Current Visit: Yes (5) Acute renal failure Status: Acute Assessment and plan: Likely due to urinary retention. Creatinine falling from 14 down to 9. Nephrology following We will continue to monitor urine output, and need hydration due to risk of electrolyte abnormalities. This is likely related with postobstructive diuresis. We will continue to follow at this time. No acute surgical intervention. Maintain Franks catheter to gravity. Start Flomax 0.4 mg nightly and finasteride 5 mg daily when electrolytes normalized. Thanks for the opportunity to participate in the care of this patient. Current Visit: Yes Urology - PN: Subj Interval history: Sensorium clearing. Patient reports it had a long-standing history of voiding complaints. He noted over the last 2 weeks and had difficulty voiding. He had episodes of urinary incontinence. He reports that he was not have any urge. This had been gradual in onset, but acutely worsening. Denies fevers or chills. He become very confused and disoriented prior to admission. Is feeling better this morning. Chronic constipation and Parkinson's disease. He states this is been a long- standing problem, and is treated with [id number] laxatives. Exam - Constitutional Vitals: Period Temp Pulse Resp BP Sys/Logan Pulse Ox Last 24 Hr 97.4 F-98.1 F 69-93 17-20 105-141/47-80 94-98 General appearance: no acute distress - Head Head exam: Present: normocephalic, atraumatic - Eye Eye exam: Absent: scleral icterus - ENT ENT exam: Present: normal oropharynx - Neck Neck exam: Present: normal inspection - Respiratory Respiratory exam: Present: clear to auscultation bilaterally. Absent: stridor - Cardiovascular Cardiovascular exam: Present: regular rate and rhythm. Absent: JVD - GI/Abdominal GI/Abdominal exam: Present: normal bowel sounds, soft. Absent: distended, rebound - Genitourinary Genitourinary: scrotum without lesions, cysts, edema or rash, penis with no lesions or discharge, other (Franks catheter in place draining clear urine) - Extremities Exam Extremities exam: Present: normal capillary refill - Back Exam Back exam: Absent: CVA tenderness (L), CVA tenderness (R) - Neurological Exam Neurological exam: Present: alert, oriented X3 - Psychiatric Psychiatric exam: Present: normal affect, normal mood - Skin Skin exam: Present: warm, dry Results - Labs CBC & BMP: 10/08/16 05:15 10/08/16 05:15 Lab Results: I have reviewed the past 24 hour labs
[2016-10-09] MEDS: METOPROLOL SUCCINATE XL 100 MG TABLET PO SCH (08:33)
[2016-10-09] MEDS: ASPIRIN EC 81 MG TABLET PO SCH (08:33)
[2016-10-09] MEDS: RASAGILINE 0.5 MG TABLET PO SCH (08:33)
[2016-10-09] MEDS: INSULIN LISPRO 100 UNIT/ML SUBCUT SCH ×4 (08:35→20:27)
[2016-10-09 09:55] LABS: Basophils % 0.3 % (0.0-0.8); Eosinophils # 0.4 10*3/uL (0.0-0.87); Eosinophils % 3.5 % (0.00-10.9); Hematocrit 30.5 VOL% (42.0-52.0); Hemoglobin 10.7 GM/DL (14.0-18.0); Immature Granulocytes % 3.1 %; Immature Granulocytes Absolute 0.35 #; Lymphocytes # 1.7 10*3/uL (1.4-4.0); Lymphocytes % 15.5 % (21.2-54.2); Mean Corpuscular HGB Conc 35.1 GM/DL (32-36); Mean Corpuscular Hemoglobin 31 PG (27-34); Mean Corpuscular Volume 89.2 FL (87-102); Mean Platelet Volume 10.2 FL (9.6-12.0); Monocytes # 1.3 10*3/uL (0.11-0.8); Monocytes % 11.7 % (1.7-12.7); Neutrophils # 7.4 10*3/uL (1.4-7.4); Neutrophils % 65.9 % (38.7-73.9); Platelet Count 136 T/CUMM (130-400); Red Blood Count 3.42 MC/CUMM (3.8-5.5); Red Cell Distribution Width 13.4 % (9.3-17.3); White Blood Count 11.2 T/CUMM (4-12)
[2016-10-09 10:18] LABS: Albumin 2.4 G/DL (3.4-5.0); Bilirubin,Total 0.8 MG/DL (0.2-1.0); Calcium 8.1 MG/DL (8.5-10.1); Osmolality,Calculated 305.3 MOS/KG (273-304); Potassium 3.3 MMOL/L (3.5-5.1); Total Protein 5.2 G/DL (6.4-8.3)
[2016-10-09] MEDS: POTASSIUM CHLORIDE 20 MEQ TABLET PO SCH ×2 (11:00→20:28)
--- NOTE | 2016-10-09 12:46 | Hospitalist Progress Note ---
Assessment and Plan (1) Acute renal failure Status: Acute Assessment and plan: due to obstructive Uropathy from enlarged prostate. Appreciates Urology's input.His renal staus has improved drastically from BUN/CR of 148/9.1-39/1.2. Patient has a varela Plan continue with IVF, varela, follow Nephrology and Urology's recommendations Current Visit: Yes (2) Enlarged prostate with urinary retention Status: Acute Assessment and plan: Continue with Varela, Flomax 0.4 mg nightly and finasteride 5 mg daily.Follow Urology's recommendations Current Visit: Yes (3) UTI (urinary tract infection) Status: Acute Assessment and plan: UC grew gram negative rods. Plan Continue with IV Zosyn Current Visit: Yes (4) Diabetes mellitus Status: Chronic Assessment and plan: continue current regime, will get HbA1c level. Current Visit: Yes (5) HTN (hypertension) Status: Chronic Assessment and plan: stable Current Visit: Yes Qualifiers: Hypertension type: essential hypertension Qualified Code(s): I10 - Essential (primary) hypertension (6) Parkinson disease Status: Chronic Assessment and plan: Continue home medications. Current Visit: Yes Hospitalist: Subjective Interval history: Patient seen this am. he was a little sleepy but no new issues.His renal staus has improved drastically from BUN/CR of 148/9.1-39/1.2. Patient has a varela, Urology is following. Exam - Constitutional Vitals: Period Temp Pulse Resp BP Sys/Logan Pulse Ox Last 24 Hr 97.2 F-98.1 F 69-80 16-20 105-142/47-80 95-98 General appearance: no acute distress, other (sleepy) - Respiratory Respiratory exam: Present: clear to auscultation bilaterally - Cardiovascular Cardiovascular exam: Present: regular rate and rhythm - GI/Abdominal GI/Abdominal exam: Present: normal bowel sounds - Extremities Exam Extremities exam: Present: normal inspection - Neurological Exam Neurological exam: Present: oriented X3 Results - Labs CBC & BMP: 10/09/16 06:14 10/09/16 06:14 Lab Results: I have reviewed the past 24 hour labs Quality Measures - VTE Contraindication to Pharmacological VTE Prophylaxis: Thrombocytopenia
--- NOTE | 2016-10-09 19:23 | Nephrology Progress Note ---
Nephrology - PN: Subj Interval history: The patient is doing acceptable. Serum creatinine is now down to normal at 1.2. Good urine output. No other acute changes. No new recommendations for this patient. Will sign off. Please call if needed. Exam (PN)-Nephrology - Vital Signs Vital signs: Period Temp Pulse Resp BP Sys/Logan Pulse Ox Last 24 Hr 97.2 F-98.2 F 67-74 16-20 105-142/47-72 95-98 - General Appearance General appearance: well-developed, well-nourished EENT: ATNC Neck: supple Respiratory: clear Cardiology: regular rate, regular rhythm Gastrointestinal: normoactive bowel sounds, no tenderness Neurologic: alert and oriented x3 Musculoskeletal: no clubbing Psychiatric: mood/affect appropriate - Lab 10/09/16 06:14 10/09/16 06:14 Most recent lab results Calcium 8.1 MG/DL (8.5-10.1) L 10/09/16 06:14 Magnesium 4.0 MG/DL (1.8-2.4) H 10/08/16 05:15 Assessment and Plan (1) Acute renal failure Status: Acute Assessment and plan: More likely due to obstruction. Which is 7 was relieved. Renal failure has resolved. Now with a Franks in place and is voiding. Current Visit: Yes (2) Parkinson disease Status: Chronic Current Visit: Yes (3) HTN (hypertension) Status: Chronic Current Visit: Yes Qualifiers: Hypertension type: essential hypertension Qualified Code(s): I10 - Essential (primary) hypertension (4) Urinary tract infection Status: Acute Current Visit: Yes (5) Retention of urine, unspecified Status: Resolved Assessment and plan: Now Franks catheter in place. Franks catheter is in place. Acute renal failure has resolved. Current Visit: Yes
[2016-10-09] MEDS: METOPROLOL SUCCINATE XL 50 MG TABLET PO SCH (20:27)
[2016-10-09] MEDS: MAGNESIUM OXIDE 400 MG TABLET PO SCH (20:27)
[2016-10-09] MEDS: MULTIVITAMIN (BEROCCA) TABLET PO SCH (20:27)
[2016-10-10] MEDS: SODIUM CHLORIDE 0.9% 1,000 ML IV SCH ×3 (01:12→22:53)
[2016-10-10] MEDS: PIPERACILLIN/TAZOBACTAM 3,375 MG in SODIUM CHLORIDE 0.9% 100 ML IV SCH ×3 (02:59→18:25)
[2016-10-10 06:10] LABS: Basophils % 0.2 % (0.0-0.8); Eosinophils # 0.5 10*3/uL (0.0-0.87); Eosinophils % 4.4 % (0.00-10.9); Hematocrit 28.5 VOL% (42.0-52.0); Immature Granulocytes % 2.4 %; Immature Granulocytes Absolute 0.29 #; Lymphocytes # 1.9 10*3/uL (1.4-4.0); Lymphocytes % 15.6 % (21.2-54.2); Mean Corpuscular HGB Conc 35.1 GM/DL (32-36); Mean Corpuscular Hemoglobin 32 PG (27-34); Mean Corpuscular Volume 91.1 FL (87-102); Mean Platelet Volume 9.8 FL (9.6-12.0); Monocytes # 0.8 10*3/uL (0.11-0.8); Monocytes % 6.7 % (1.7-12.7); Neutrophils # 8.7 10*3/uL (1.4-7.4); Neutrophils % 70.7 % (38.7-73.9); Platelet Count 160 T/CUMM (130-400); Red Blood Count 3.13 MC/CUMM (3.8-5.5); Red Cell Distribution Width 13.6 % (9.3-17.3); White Blood Count 12.3 T/CUMM (4-12)
[2016-10-10 06:36] LABS: Calcium 7.6 MG/DL (8.5-10.1); Magnesium 1.8 MG/DL (1.8-2.4); Osmolality,Calculated 287.8 MOS/KG (273-304); Potassium 3.8 MMOL/L (3.5-5.1)
[2016-10-10] MEDS: INSULIN LISPRO 100 UNIT/ML SUBCUT SCH ×4 (08:26→21:44)
[2016-10-10] MEDS: RASAGILINE 0.5 MG TABLET PO SCH (08:26)
[2016-10-10] MEDS: POTASSIUM CHLORIDE 20 MEQ TABLET PO SCH ×2 (08:26→21:44)
[2016-10-10] MEDS: ASPIRIN EC 81 MG TABLET PO SCH (08:26)
[2016-10-10] MEDS: METOPROLOL SUCCINATE XL 100 MG TABLET PO SCH (08:26)
--- NOTE | 2016-10-10 08:43 | Urology Progress Note ---
Assessment and Plan (1) Acute urinary retention Status: Acute Assessment and plan: Urine culture positive for greater than 100,000 gram-negative rods. Final culture pending. This is likely worsened by Parkinson's disease, medications, and possible constipation. Maintain Franks catheter to gravity. I want to leave this in until at least Thursday. If he is stable to go home, he can be discharged with indwelling Franks. Current Visit: Yes (2) Enlarged prostate with urinary retention Status: Acute Assessment and plan: 40 g prostate with significant urinary retention. Start Flomax 0.4 mg nightly and finasteride 5 mg daily. Discussed with the patient that he may need intermittent catheterization in the future. Will give trial of voiding on Thursday. Current Visit: Yes (3) Parkinson disease Status: Chronic Assessment and plan: Likely contributing to urinary retention. His bladder may be poorly function with neuropathy. Or, this could be related just with medications. Current Visit: Yes (4) Hydronephrosis due to obstruction of bladder Status: Acute Assessment and plan: Maintain Franks catheter to gravity. Creatinine is back to normal. Nephrology following. Hydronephrosis should resolve with gravity drainage. Current Visit: Yes (5) Acute renal failure Status: Acute Assessment and plan: Creatinine back to normal. No acute surgical intervention. Maintain Franks catheter to gravity until at least Thursday. Start Flomax 0.4 mg nightly and finasteride 5 mg daily. I will not round on him over the weekend. The on-call urologist will be available for any emergencies, but will not round daily. If discharged prior to Thursday, leave Franks catheter to gravity. He will need a follow-up appointment with me within a week. He needs to be on Flomax and finasteride at discharge. Needs culture directed antibiotics for at least 10 days. Final urine culture pending. Please call with any questions or concerns. Thanks for the opportunity to participate in the care of this patient. Current Visit: Yes Urology - PN: Subj Interval history: Feeling a little stronger. No nausea or vomiting. Tolerated oral intake. No fevers or chills. Denies shortness of breath or chest pain. Still no bowel movement since admission. Reports last BM was morning of admission. No significant back pain or abdominal pain. Exam - Constitutional Vitals: Period Temp Pulse Resp BP Sys/Logan Pulse Ox Last 24 Hr 97.6 F-98.5 F 67-84 16-20 112-126/61-66 97-99 General appearance: no acute distress - Head Head exam: Present: normocephalic, atraumatic - Eye Eye exam: Absent: scleral icterus - ENT ENT exam: Present: normal oropharynx - Neck Neck exam: Present: normal inspection - Respiratory Respiratory exam: Absent: accessory muscle use, stridor, wheezes - Cardiovascular Cardiovascular exam: Present: regular rate and rhythm - GI/Abdominal GI/Abdominal exam: Present: soft. Absent: tenderness, rebound - Genitourinary Genitourinary: penis with no lesions or discharge (Franks catheter draining clear yellow urine. Catheter secure removed from right thigh.) - Extremities Exam Extremities exam: Present: normal capillary refill - Back Exam Back exam: Absent: CVA tenderness (L), CVA tenderness (R) - Neurological Exam Neurological exam: Present: alert, oriented X3 - Psychiatric Psychiatric exam: Present: normal affect, normal mood - Skin Skin exam: Present: warm, dry Results - Labs CBC & BMP: 10/10/16 04:40 10/10/16 04:40 Lab Results: I have reviewed the past 24 hour labs
[2016-10-10] MEDS: TAMSULOSIN 0.4 MG CAPSULE PO SCH ×2 (09:23→21:44)
[2016-10-10] MEDS: FINASTERIDE 5 MG TABLET PO SCH (09:23)
--- NOTE | 2016-10-10 14:47 | Neurology Progress Note ---
Neurology - PN : Subjective Interval history: Patient seems to be doing much better. Alert and awake. Sitting up in the bed and feeding himself. Exam (Progress Note) - Constitutional Vitals: Period Temp Pulse Resp BP Sys/Logan Pulse Ox Last 24 Hr 97.1 F-98.5 F 62-84 16-20 112-145/61-82 97-99 Exam: GENERAL: Patient is in no acute distress. NECK: Neck is supple. There is no JVD. No carotid bruits present. No thyroid masses. CVS: First and second heart sounds are normal. There is no S3 present. Regular rate and rhythm. RESPIRATORY: Lungs are clear to auscultation without any rales or rhonchi. ABDOMEN: Soft and non-tender. Bowel sounds are present. There is no hepatosplenomegaly. EXT: There is no palpable edema. Peripheral pulses are present. Skin: No rashes Central Nervous system: General: Alert, awake and Oriented x 3 Speech: Fluent Comprehension: Intact and normal Facial expressions: Normal Cranial Nerves: CN1/Olfactory: Normal CN II/ Optic: Normal, Visual Pedraza unreliable CN III, and : CYRUS & EOMI CN V: Normal & intact CN VII: face is symmetric CNVIII: Normal CN XI/X/XI/XII: Grossly intact and Normal Motor: Bilateral mild cogwheel rigidity and bradykinesia Manual strength testing 3/5 Sensory: Grossly intact for all the modalities of PP, LT and temp sense Reflexes: 1+ and symmetrical Cerebellar function: No chest Toes: Equivocal Gait: Not tested Results - Labs CBC & BMP: 10/10/16 04:40 10/10/16 04:40 Assessment and Plan (1) Toxic metabolic encephalopathy Status: Acute Assessment and plan: Likely secondary to infection and renal failure/acute kidney injury Continue current management Current Visit: Yes (2) Parkinson disease Status: Chronic Assessment and plan: Continue current Parkinson's medication at the same dose. Recommend TMR placement Current Visit: Yes Quality Measures - VTE Contraindication to Pharmacological VTE Prophylaxis: Thrombocytopenia
--- NOTE | 2016-10-10 15:10 | Hospitalist Progress Note ---
Assessment and Plan (1) Acute renal failure Status: Acute Assessment and plan: Renal failure has resolved. Now with a Franks in place and is voiding. Current Visit: Yes (2) Parkinson disease Status: Chronic Current Visit: Yes (3) HTN (hypertension) Status: Chronic Current Visit: Yes Qualifiers: Hypertension type: essential hypertension Qualified Code(s): I10 - Essential (primary) hypertension (4) Urinary tract infection Status: Acute Current Visit: Yes (5) Retention of urine, unspecified Status: Resolved Assessment and plan: Now Franks catheter in place. Franks catheter is in place. Acute renal failure has resolved. Current Visit: Yes Hospitalist: Subjective Interval history: Patient is resting comfortably. Appears much stronger today. Serum creatinine is stable. At this time continue to do voiding trials for patient on next week. No fevers or chills. Hopefully can go home next week Exam - Constitutional Vitals: Period Temp Pulse Resp BP Sys/Logan Pulse Ox Last 24 Hr 97.1 F-98.5 F 62-84 16-20 112-145/61-82 97-99 General appearance: normal weight - Head Head exam: Present: normal inspection - Respiratory Respiratory exam: Present: clear to auscultation bilaterally - Cardiovascular Cardiovascular exam: Present: regular rate and rhythm - GI/Abdominal GI/Abdominal exam: Present: normal bowel sounds - Neurological Exam Neurological exam: Present: alert - Psychiatric Psychiatric exam: Present: normal affect - Skin Skin exam: Present: normal color Results - Labs CBC & BMP: 10/10/16 04:40 10/10/16 04:40 Quality Measures - VTE Contraindication to Pharmacological VTE Prophylaxis: Thrombocytopenia
[2016-10-10] MEDS: MAGNESIUM OXIDE 400 MG TABLET PO SCH (21:44)
[2016-10-10] MEDS: MULTIVITAMIN (BEROCCA) TABLET PO SCH (21:44)
[2016-10-10] MEDS: METOPROLOL SUCCINATE XL 50 MG TABLET PO SCH (21:45)
[2016-10-11] MEDS: SODIUM CHLORIDE 0.9% 1,000 ML IV SCH ×3 (02:00→20:49)
[2016-10-11] MEDS: PIPERACILLIN/TAZOBACTAM 3,375 MG in SODIUM CHLORIDE 0.9% 100 ML IV SCH ×3 (04:26→18:06)
[2016-10-11 06:06] LABS: Basophils % 0.3 % (0.0-0.8); Eosinophils # 0.6 10*3/uL (0.0-0.87); Eosinophils % 4.3 % (0.00-10.9); Hemoglobin 9.6 GM/DL (14.0-18.0); Immature Granulocytes % 2.1 %; Immature Granulocytes Absolute 0.28 #; Lymphocytes # 1.9 10*3/uL (1.4-4.0); Lymphocytes % 14.5 % (21.2-54.2); Mean Corpuscular HGB Conc 34.3 GM/DL (32-36); Mean Corpuscular Hemoglobin 31 PG (27-34); Mean Corpuscular Volume 91.5 FL (87-102); Mean Platelet Volume 9.7 FL (9.6-12.0); Monocytes # 0.6 10*3/uL (0.11-0.8); Monocytes % 4.6 % (1.7-12.7); Neutrophils # 9.8 10*3/uL (1.4-7.4); Neutrophils % 74.2 % (38.7-73.9); Platelet Count 176 T/CUMM (130-400); Red Blood Count 3.06 MC/CUMM (3.8-5.5); Red Cell Distribution Width 13.2 % (9.3-17.3); White Blood Count 13.2 T/CUMM (4-12)
[2016-10-11] MEDS: INSULIN LISPRO 100 UNIT/ML SUBCUT SCH ×4 (07:27→20:48)
[2016-10-11] MEDS: FINASTERIDE 5 MG TABLET PO SCH (08:21)
[2016-10-11] MEDS: METOPROLOL SUCCINATE XL 100 MG TABLET PO SCH (08:21)
[2016-10-11] MEDS: TAMSULOSIN 0.4 MG CAPSULE PO SCH ×2 (08:21→20:20)
[2016-10-11] MEDS: RASAGILINE 0.5 MG TABLET PO SCH (08:21)
[2016-10-11] MEDS: ASPIRIN EC 81 MG TABLET PO SCH (08:21)
--- NOTE | 2016-10-11 09:00 | Hospitalist Progress Note ---
Assessment and Plan (1) Weakness Status: Acute Assessment and plan: He is very weak and debilitated. He is receiving physical therapy. He may need discharge, when better, to either a swing bed or rehabilitation. Current Visit: Yes (2) Acute renal failure Status: Acute Assessment and plan: His renal function continues to improve. His BUN and creatinine are 11 and 0.6 respectively today. Current Visit: Yes (3) Parkinson disease Status: Chronic Assessment and plan: Stable. He continues on his previously prescribed medications. Current Visit: Yes (4) Enlarged prostate with urinary retention Status: Acute Assessment and plan: He has a Franks catheter in place. He is to undergo voiding trials this week preparatory to discharge. Current Visit: Yes Hospitalist: Subjective Interval history: Patient has been hospitalized with acute renal failure due to obstructive uropathy. His renal function has improved significantly. Most recent creatinine is 1.0. He is to undergo voiding trials this week. He is very weak and is receiving physical therapy. Exam - Constitutional Vitals: Period Temp Pulse Resp BP Sys/Logan Pulse Ox Last 24 Hr 97.1 F-98.2 F 62-71 18-22 122-135/61-73 92-98 General appearance: no acute distress - Head Head exam: Present: normal inspection - Neck Neck exam: Present: normal inspection - Respiratory Respiratory exam: Present: clear to auscultation bilaterally - Cardiovascular Cardiovascular exam: Present: regular rate and rhythm - GI/Abdominal GI/Abdominal exam: Present: normal bowel sounds, soft, other (Nontender with no palpable masses or hepatosplenomegaly.) - Extremities Exam Extremities exam: Present: normal inspection - Neurological Exam Neurological exam: Present: alert, oriented X3 - Skin Skin exam: Present: normal color, warm, intact Results - Labs CBC & BMP: 10/11/16 05:14 10/10/16 04:40 Quality Measures - VTE Contraindication to Pharmacological VTE Prophylaxis: Thrombocytopenia
[2016-10-11] MEDS: MULTIVITAMIN (BEROCCA) TABLET PO SCH (20:20)
[2016-10-11] MEDS: METOPROLOL SUCCINATE XL 50 MG TABLET PO SCH (20:20)
[2016-10-11] MEDS: MAGNESIUM OXIDE 400 MG TABLET PO SCH (20:20)
[2016-10-12] MEDS: PIPERACILLIN/TAZOBACTAM 3,375 MG in SODIUM CHLORIDE 0.9% 100 ML IV SCH ×3 (04:02→18:07)
[2016-10-12] MEDS: SODIUM CHLORIDE 0.9% 1,000 ML IV SCH ×3 (05:27→21:45)
[2016-10-12 07:07] LABS: Basophils % 0.3 % (0.0-0.8); Eosinophils # 0.4 10*3/uL (0.0-0.87); Eosinophils % 3.3 % (0.00-10.9); Hematocrit 27.8 VOL% (42.0-52.0); Hemoglobin 9.5 GM/DL (14.0-18.0); Immature Granulocytes % 1.9 %; Immature Granulocytes Absolute 0.25 #; Lymphocytes # 1.9 10*3/uL (1.4-4.0); Lymphocytes % 14.7 % (21.2-54.2); Mean Corpuscular HGB Conc 34.2 GM/DL (32-36); Mean Corpuscular Hemoglobin 31 PG (27-34); Mean Corpuscular Volume 90.6 FL (87-102); Mean Platelet Volume 9.7 FL (9.6-12.0); Monocytes # 0.6 10*3/uL (0.11-0.8); Monocytes % 4.2 % (1.7-12.7); Neutrophils # 9.8 10*3/uL (1.4-7.4); Neutrophils % 75.6 % (38.7-73.9); Platelet Count 217 T/CUMM (130-400); Red Blood Count 3.07 MC/CUMM (3.8-5.5); Red Cell Distribution Width 12.9 % (9.3-17.3)
[2016-10-12 07:42] LABS: Calcium 7.5 MG/DL (8.5-10.1); Osmolality,Calculated 277.4 MOS/KG (273-304); Potassium 3.8 MMOL/L (3.5-5.1)
[2016-10-12] MEDS: INSULIN LISPRO 100 UNIT/ML SUBCUT SCH ×4 (07:45→21:25)
[2016-10-12] MEDS: RASAGILINE 0.5 MG TABLET PO SCH (08:11)
[2016-10-12] MEDS: METOPROLOL SUCCINATE XL 100 MG TABLET PO SCH (08:11)
[2016-10-12] MEDS: FINASTERIDE 5 MG TABLET PO SCH (08:11)
[2016-10-12] MEDS: TAMSULOSIN 0.4 MG CAPSULE PO SCH ×2 (08:11→21:24)
[2016-10-12] MEDS: ASPIRIN EC 81 MG TABLET PO SCH (08:11)
--- NOTE | 2016-10-12 13:10 | Hospitalist Progress Note ---
Assessment and Plan (1) Acute renal failure Status: Acute Assessment and plan: Renal failure has resolved. bun/creatinine stable. Current Visit: Yes (2) Parkinson disease Status: Chronic Current Visit: Yes (3) Retention of urine, unspecified Status: Resolved Assessment and plan: Franks in place.Urology following. Voiding trials to start tomorrow. Current Visit: Yes Hospitalist: Subjective Interval history: Pt. resting today. No acute changes overnight. Family present at bedside. Franks still intact. Voiding trials to begin tomorrow. Exam - Constitutional Vitals: Period Temp Pulse Resp BP Sys/Logan Pulse Ox Last 24 Hr 97.7 F-98.6 F 64-76 17-20 119-141/53-70 93-97 General appearance: normal weight, no acute distress - Head Head exam: Present: normal inspection, normocephalic - Eye Eye exam: Absent: laceration to eyelids - Respiratory Respiratory exam: Present: other (nonlabored breathing) - Cardiovascular Cardiovascular exam: Present: regular rate and rhythm - Neurological Exam Neurological exam: Present: oriented X3. Absent: altered - Psychiatric Psychiatric exam: Present: normal affect, normal mood - Skin Skin exam: Present: normal color, warm, dry Results - Labs CBC & BMP: 10/12/16 06:16 10/12/16 06:16 Lab Results: I have reviewed the past 24 hour labs Quality Measures - VTE Contraindication to Pharmacological VTE Prophylaxis: Thrombocytopenia
[2016-10-12] MEDS: MAGNESIUM OXIDE 400 MG TABLET PO SCH (21:24)
[2016-10-12] MEDS: METOPROLOL SUCCINATE XL 50 MG TABLET PO SCH (21:24)
[2016-10-12] MEDS: MULTIVITAMIN (BEROCCA) TABLET PO SCH (21:24)
[2016-10-13] MEDS: PIPERACILLIN/TAZOBACTAM 3,375 MG in SODIUM CHLORIDE 0.9% 100 ML IV SCH ×2 (03:44→11:34)
[2016-10-13] MEDS: SODIUM CHLORIDE 0.9% 1,000 ML IV SCH ×2 (03:45→05:06)
[2016-10-13] MEDS ORDERED: STALEVO PO SCH (07:30)
--- NOTE | 2016-10-13 07:51 | Urology Progress Note ---
Assessment and Plan (1) Acute urinary retention Status: Acute Assessment and plan: Urine culture positive for greater than 100,000 gram-negative rods. Final culture back with sensitivities. This is likely worsened by Parkinson's disease, medications, and possible constipation. Remove Franks catheter this morning. Voiding trial, with intermittent catheterization if unable to void effectively. Current Visit: Yes (2) Enlarged prostate with urinary retention Status: Acute Assessment and plan: 40 g prostate with significant urinary retention. Start Flomax 0.4 mg nightly and finasteride 5 mg daily. Discussed with the patient that he may need intermittent catheterization in the future. Will give trial of voiding today. Current Visit: Yes (3) Parkinson disease Status: Chronic Assessment and plan: Likely contributing to urinary retention. His bladder may be poorly function with neuropathy. Or, this could be related just with medications. Discussed with patient that he may need self catheterization if bladder not effective in emptying. Current Visit: Yes (4) Hydronephrosis due to obstruction of bladder Status: Acute Assessment and plan: Start intermittent catheterization if voiding trial fails. Creatinine is back to normal. Nephrology following. Hydronephrosis should have resolved with gravity drainage. Current Visit: Yes (5) Acute renal failure Status: Acute Assessment and plan: Creatinine back to normal. No acute surgical intervention. Remove catheter this morning. Start Flomax 0.4 mg nightly and finasteride 5 mg daily. He needs to be on Flomax and finasteride at discharge. Needs culture directed antibiotics for at least 10 days. Final urine culture available this morning. I have instructed the nurses to remove the catheter. Will start a voiding trial. If unable to catheterize he will need to be taught self catheterization. This will be clean intermittent catheterization 3-4 times daily. We will need follow-up with me in 2 weeks. Please call with any questions or concerns. Thanks for the opportunity to participate in the care of this patient. Current Visit: Yes Urology - PN: Subj Interval history: Feeling a lot better. Tolerating a regular diet. Bowel movements daily now. Creatinine has normalized. Ready for voiding trial. Denies fevers or chills, chest pain, shortness of breath, or diarrhea. He reports that he is willing to try clean intermittent catheterization by himself if needed. Exam - Constitutional Vitals: Period Temp Pulse Resp BP Sys/Logan Pulse Ox Last 24 Hr 98.0 F-98.6 F 60-68 18-22 119-150/53-71 96-98 General appearance: no acute distress - Head Head exam: Present: normocephalic, atraumatic - Eye Eye exam: Absent: scleral icterus - ENT ENT exam: Present: normal oropharynx - Respiratory Respiratory exam: Present: clear to auscultation bilaterally. Absent: accessory muscle use, decreased breath sounds - Cardiovascular Cardiovascular exam: Present: regular rate and rhythm - GI/Abdominal GI/Abdominal exam: Present: soft. Absent: tenderness, rebound - Genitourinary Genitourinary: scrotum without lesions, cysts, edema or rash, penis with no lesions or discharge, other (Franks with clear urine) - Extremities Exam Extremities exam: Present: normal capillary refill. Absent: edema - Back Exam Back exam: Absent: CVA tenderness (L), CVA tenderness (R) - Neurological Exam Neurological exam: Present: alert, oriented X3 - Psychiatric Psychiatric exam: Present: normal affect, normal mood - Skin Skin exam: Present: warm, dry Results - Labs CBC & BMP: 10/12/16 06:16 10/12/16 06:16 Lab Results: I have reviewed the past 24 hour labs
[2016-10-13] MEDS: FINASTERIDE 5 MG TABLET PO SCH (08:35)
[2016-10-13] MEDS: TAMSULOSIN 0.4 MG CAPSULE PO SCH (08:35)
[2016-10-13] MEDS: ASPIRIN EC 81 MG TABLET PO SCH (08:35)
[2016-10-13] MEDS: RASAGILINE 0.5 MG TABLET PO SCH (08:35)
[2016-10-13] MEDS: METOPROLOL SUCCINATE XL 100 MG TABLET PO SCH (09:22)
[2016-10-13] MEDS: INSULIN LISPRO 100 UNIT/ML SUBCUT SCH ×3 (09:22→17:20)
[2016-10-13 09:23] LABS: Calcium 7.8 MG/DL (8.5-10.1); Magnesium 1.8 MG/DL (1.8-2.4); Osmolality,Calculated 282.1 MOS/KG (273-304); Potassium 4.1 MMOL/L (3.5-5.1)
--- NOTE | 2016-10-13 09:29 | Neurology Progress Note ---
Neurology - PN : Subjective Interval history: Mr. Galvan seems to be doing much better. More alert and awake. Performing activities. Feeding himself. Able to get up to go to the chair and transfers better. Still requiring mod assist Exam (Progress Note) - Constitutional Vitals: Period Temp Pulse Resp BP Sys/Logan Pulse Ox Last 24 Hr 97.7 F-98.6 F 60-68 18-22 115-150/51-71 96-98 Exam: GENERAL: Patient is in no acute distress. NECK: Neck is supple. There is no JVD. No carotid bruits present. No thyroid masses. CVS: First and second heart sounds are normal. There is no S3 present. Regular rate and rhythm. RESPIRATORY: Lungs are clear to auscultation without any rales or rhonchi. ABDOMEN: Soft and non-tender. Bowel sounds are present. There is no hepatosplenomegaly. EXT: There is no palpable edema. Peripheral pulses are present. Skin: No rashes Central Nervous system: General: Alert, awake and Oriented x 3 Speech: Fluent Comprehension: Intact and normal Facial expressions: Normal Cranial Nerves: CN1/Olfactory: Normal CN II/ Optic: Normal, Visual Pedraza unreliable CN III, and : CYRUS & EOMI CN V: Normal & intact CN VII: face is symmetric CNVIII: Normal CN XI/X/XI/XII: Grossly intact and Normal Motor: Bilateral mild cogwheel rigidity and bradykinesia Manual strength testing 3/5 Sensory: Grossly intact for all the modalities of PP, LT and temp sense Reflexes: 1+ and symmetrical Cerebellar function: No chest Toes: Equivocal Gait: Not tested Results - Labs CBC & BMP: 10/12/16 06:16 10/13/16 07:50 Assessment and Plan (1) Toxic metabolic encephalopathy Status: Acute Assessment and plan: This is much better now Likely secondary to infection and renal failure/acute kidney injury Continue current management Current Visit: Yes (2) Parkinson disease Status: Chronic Assessment and plan: Continue current Parkinson's medication at the same dose. Transfer to [facility] rehab when okay with PCP Sign off please call as needed Current Visit: Yes Quality Measures - VTE Contraindication to Pharmacological VTE Prophylaxis: Thrombocytopenia
--- NOTE | 2016-10-13 10:13 | Discharge Summary ---
<Emilia Lambert - Last Filed: 10/13/16 12:38> Hospital Course - Hospital Course Hospital Course: Mr Galvan is a 71yr old male with a history of Parkinson's Disease, DM, HTN who presented on 10/07/16 to the ED for further evaluation of complaints of weakness, abnormal gait, abnormal speech, disorientation and forgetfulness for 2 weeks. Upon arrival, WBC 21.6. CT of the head: negative for acute changes. CXR: negative chest. ABD XR: mild constipation without obstruction. CT Abd/ pelvis: mild hydronephrosis bilaterally, enlarged prostate gland. creatinine 14.1. Patient was admitted,started on IVF,Urology and Nephrology were consulted. Urology passed a Franks and there was greater than 2 liters in bladder; they felt this was likely worsened by patient's Parkinson's disease and medication.He was commenced on Flomax 0.4 mg nightly and finasteride 5 mg daily.He also grew E. Coli in his urine and was given IV Zosyn. BC was negative.patient's creatinine drastically improved, he also clinically improved. PT/OT were consulted. Neurology also saw in consultation.they discontinued his Cogentin, and thought he had a toxic metabolic encephalopathy due to infection and renal failure. His vitals remained stable this am, we will be sending him to R.Urology wants patient to be on two weeks of antibiotics. Specialty Discharge - Follow Up or Referrals Follow up with: Freddie Diaz MD [Physician] - 2 Weeks Discharge Plan - Discharge Data Disposition: Disch/Xfer-Ip Rehab Fac - Discharge Medications New Finasteride [Proscar] 5 mg PO DAILY #30 tablet Tamsulosin [Flomax] 0.4 mg PO BID #60 capsule Insulin Lispro [HumaLOG] See Protocol SUBCUT ACHS unit Levofloxacin Tab [Levaquin Tab] 500 mg PO DAILY #14 tablet Acetaminophen Tab [Tylenol Tab] 325 mg PO Q4H PRN tablet PRN Reason: fever, headache/body aches Finasteride [Proscar] 5 mg PO DAILY tablet Continue metFORMIN [Glucophage] 500 mg PO BID W/MEALS Rasagiline [Azilect] 1 mg PO QAM Aspirin [Ecotrin] 81 mg PO QAM Vitamin B Complex [B Complex] 1 each PO QPM hydroCHLOROthiazide [Hydrochlorothiazide] 12.5 mg PO QAM Metoprolol Succinate 100 mg PO QAM Metoprolol Succinate 50 mg PO BEDTIME Carbidopa/Levodopa/Entacapone [Stalevo 125 Tablet] 1 each PO ACHS Magnesium Oxide [Magnesium] 400 mg PO QPM Discontinued cephALEXin [Cephalexin] 500 mg PO TID Benztropine Tab [Cogentin Tab] 2 mg PO TID Docusate Sodium 250 mg PO QAM - Follow Up or Referral Follow Up: Freddie Diaz MD [Physician] - 2 Weeks - Forms/Instructions Instructions: Benign Prostatic Hypertrophy (DC), Urinary Tract Infection in Men (DC), How to Catheterize Yourself (Man) (GEN), Hydronephrosis (DC) Exam - Constitutional Vitals: Period Temp Pulse Resp BP Sys/Logan Pulse Ox Last 24 Hr 96.9 F-98.3 F 60-68 18-22 115-150/51-71 96-98 Discharge Results Labs on day of discharge: Labs from last 24 hours 10/13/16 10/13/16 10/12/16 12:25 07:50 18:58 Sodium 142 Potassium 4.1 Chloride 109 H Carbon Dioxide 29 Anion Gap 8.1 BUN 6 L Creatinine 0.70 GFR Calculation 109 BUN/Creatinine Ratio 8.00 Glucose 136 H POC Glucose 234 H 202 H Calculated Osmolality 282.1 Calcium 7.8 L Magnesium 1.8 10/12/16 16:41 Sodium Potassium Chloride Carbon Dioxide Anion Gap BUN Creatinine GFR Calculation BUN/Creatinine Ratio Glucose POC Glucose 154 H Calculated Osmolality Calcium Magnesium DS: Provider Date of admission: 10/07/16 22:34 Primary care physician: . No PCP Attending physician on admission: Rafael Valencia MD Consults: 10/07/16 23:40 Consult to Physician [CONS] Routine Comment: ARF Consulting Provider: Louis Sparks Jr. Person Notified: [email or web address] Date Notified: 10/08/16 Time Notified: 09:39 10/08/16 04:32 Consult to Physician [CONS] Routine Comment: Parkinsons; urinary retention Consulting Provider: [place] Person Notified: Emery Date Notified: 10/08/16 Time Notified: 09:49 Consult Notification Comment: let message to call me back 10/08/16 09:19 Consult to Physician [CONS] Routine Comment: Urinary Retention Consulting Provider: Freddie Diaz Consult to Specialist Group: Urology Person Notified: kim Date Notified: 10/08/16 Time Notified: 09:48 10/09/16 12:19 Consult to Occupational Therapy [CONS] Routine Reason for Occupational Therapy: Evaluate and Treat Consult to Physical Therapy [CONS] Routine Reason for Physical Therapy: Evaluate and Treat 10/10/16 10:09 Consult to Occupational Therapy [CONS] Routine Reason for Occupational Therapy: Evaluate and Treat 10/13/16 10:49 Consult to Case Mgmt/Social Srvs [CONS] Routine Reason for Case Mgmt/Social Srvs: Home Health Consult Comment: with PT and in/out cath supplies and education Discharging clinician: Emilia Lambert NP <Donna Peguero - Last Filed: 10/13/16 13:47> Hospital Course - Time spent with patient Time with patient DS: Greater than 30 minutes (Time spent greater than 35mins) Diagnosis - Discharge Diagnosis (1) Acute renal failure Status: Acute (2) Enlarged prostate with urinary retention Status: Acute (3) UTI (urinary tract infection) Status: Acute (4) Diabetes mellitus Status: Chronic (5) HTN (hypertension) Status: Chronic (6) Parkinson disease Status: Chronic Discharge Plan - Discharge Data Condition at Discharge: Stable Discharge Diet: heart healthy Activity: resume usual activities as tolerated - Forms/Instructions Additional Discharge Instructions: Follow with PCP in 1week, follow with Urology and Neurology as scheduled. Exam - Constitutional General appearance: no acute distress - Head Head exam: Present: normal inspection - Respiratory Respiratory exam: Present: clear to auscultation bilaterally - Cardiovascular Cardiovascular exam: Present: regular rate and rhythm - Neurological Exam Neurological exam: Present: alert, oriented X3
[2016-10-13 16:39] VITALS: BP 138/78
== END 2016-10-13 18:05 | disposition home health service (06) | DRG 682 ==
LOC: N.ED 19:23 → N.EDINP 22:34 → SUATTDRO 22:34 → N.5E 23:37
PROVIDERS: ADMIT Family Medicine; ATTEND Internal Medicine